=== PATIENT | female | born 1995 | race Caucasian/White ===

== ENCOUNTER 2022-08-29 01:10 | Emergency (ER) | payer OTHER, MEDICAID, SELFPAY ==
[2022-08-29 01:16] VITALS: BP 142/72; PULSE 94; RESP 18; TEMP 37.1; O2SAT 94
--- NOTE | 2022-08-29 01:47 | ED_ITS ---
HPI - General Adult General Chief complaint: Abdominal Pain Stated complaint: collitus bleeding is intense and bleeding worsen Time Seen by Provider: 08/29/22 01:23 Source: patient Mode of arrival: Wheelchair History of Present Illness HPI narrative: Patient is a 26-year-old female who states that for the past 2 weeks has had issues with bloody diarrhea. Four days ago was seen at an outside facility where she states she would a CT scan and stool studies done. She told that she did not have any infections. Was told that she had colitis. Was told to take Imodium. Has a follow-up with her primary doctor in a couple days. She states that she has only occasionally been taking Imodium because her looked up on the Internet that Imodium in colitis can cause toxic megacolon so she is not been taking it. She also has been on a brat diet. She denies any urinary symptoms. No vomiting. She is here for a 2nd opinion. Related Data Allergies Allergy/AdvReac Type Severity Reaction Status Date / Time ceftriaxone [From Rocephin] Allergy Hives Verified 08/29/22 01:20 Review of Systems Constitutional Constitutional: Reports system reviewed and no additional complaints, except as documented Gastrointestinal Gastrointestinal: Reports system reviewed and no additional complaints, except as documented Genitourinary Genitourinary: Reports system reviewed and no additional complaints, except as documented Musculoskeletal Musculoskeletal: Reports system reviewed and no additional complaints, except as documented Integumentary/Breasts Skin/Breast: Reports system reviewed and no additional complaints, except as documented Patient History Social History Smoking Status: Never smoker Exam Initial Vital Signs Initial Vital Signs: Vital Signs Temperature 98.8 F 08/29/22 01:16 Pulse Rate 94 H 08/29/22 01:16 Respiratory Rate 18 08/29/22 01:16 Blood Pressure 142/72 H 08/29/22 01:16 Pulse Oximetry 94 08/29/22 01:16 Oxygen Delivery Method Room Air 08/29/22 01:16 HENMT Head: normal to inspection and normocephalic Resp Effort & Inspection: normal respiratory effort Cardio Rate: regular rate GI Inspection: normal to inspection and non-distended Skin General: no rashes or lesions noted Neuro General: patient alert, patient awake and moves all extremities Course Orders Ordered: ED Orders 08/29/22 02:05 Complete Blood Count AUTO DIFF Stat Comprehensive Metabolic Panel Stat Lipase Stat Discontinued Medications Sodium Chloride (Normal Saline 0.9%) 1,000 mls @ 1,000 mls/hr IV BOLUS ONE Stop: 08/29/22 02:46 Last Infusion: 08/29/22 03:14 Dose: 0 mls/hr Documented By: Admin: 08/29/22 02:13 Dose: 1,000 mls/hr Documented By: SHREE Vital Signs Vital signs: Vital Signs - 8 hr 08/29/22 01:16 Temperature 98.8 F Pulse Rate 94 H Respiratory Rate 18 Blood Pressure 142/72 H Pulse Oximetry 94 Oxygen Delivery Method Room Air Medical Decision Making Lab Data Lab results reviewed: Yes I reviewed the patient's lab results. 08/29/22 02:05 08/29/22 02:05 Labs: Lab Results 08/29/22 08/29/22 Range/Units 02:05 02:05 WBC 12.8 H (4.5-11.0) X10^3/uL RBC 4.76 (4.0-5.2) X10^6/uL Hgb 12.9 (12.0-16.0) g/dL Hct 38.5 (36-46) % MCV 80.9 (80-100) fL MCH 27.0 (26-34) PG MCHC 33.4 (30-36) % RDW 14.2 (11.6-14.8) % Plt Count 447 H (150-400) X10^3/uL Neut % (Auto) 52.5 (50-75) % Lymph % (Auto) 28.1 (25-40) % Ray % (Auto) 10.0 (3-14) % Eos % (Auto) 8.3 H (2-4) % Baso % (Auto) 1.1 (0-2) % Neut # (Auto) 6700 (5008-1837) /uL Lymph # (Auto) 3600 (9580-9132) /uL Ray # (Auto) 1300 H (0-900) /uL Eos # (Auto) 1100 H (0-450) /uL Baso # (Auto) 100 (0-100) /uL Sodium 138 (137-145) mmol/L Potassium 3.6 (3.4-5.1) mmol/L Chloride 102 (98-107) mmol/L Carbon Dioxide 30 (22-32) mmol/L BUN 3 L (7-17) mg/dL Creatinine 0.77 (0.52-1.04) mg/dL Estimated GFR > 60 (>60) mL/min BUN/Creatinine Ratio 3.9 L (6-22) Glucose 94 (70-100) mg/dL Calcium 9.9 (8.4-10.2) mg/dL Total Bilirubin 0.2 (0.2-1.3) mg/dL AST 30 (14-36) IU/L ALT 31 (<35) IU/L Alkaline Phosphatase 72 (38-126) U/L Total Protein 7.7 (6.3-8.2) g/dL Albumin 4.0 (3.5-5.0) g/dL Globulin 3.7 (1.7-4.1) g/dL Albumin/Globulin Ratio 1.1 (1.0-2.8) Lipase 114 (23-300) U/L [facility] Narrative Medical decision making narrative: I attempted multiple times to obtain records from the outside facility however we have been unable to acquire them. Patient is nontoxic. Her labs here in the emergency department unremarkable. Despite the bleeding that she states she is having she is not anemic. Has a benign exam. She states she would a CT scan performed and also had stool studies. There is no indication for antibiotics. Informed her that she can continue to do the Imodium. Advised that she continue to keep her appointment with her primary doctor to discuss further evaluation potentially referral to see Gastroenterology. No indication for repeat imaging studies today. Discharge Plan Departure Patient Disposition: Home Clinical Impression: Diarrhea Instructions: Diarrhea (Alternative Therapy), Diarrhea Activity Restrictions/Additional Instructions: I do recommend that you continue to increase your fluid intake. You can take the Imodium as directed. Keep your scheduled medical appointments. Return to the emergency department for new symptoms. Stand Alone Forms: Patient Portal/API
[2022-08-29 02:10] VITALS: BMI 37.1
[2022-08-29] MEDS: SODIUM CHLORIDE 0.9% 1,000 ML 1000 ML IV (02:13)
[2022-08-29 02:19] LABS: Add Manual Diff / Slide Review NO; Basophils Absolute Auto 100 /uL (0-100); Basophils Percent Auto 1.1 % (0-2); Eosinophils Absolute Auto 1100 /uL (0-450); Eosinophils Percent Auto 8.3 % (2-4); Hematocrit 38.5 % (36-46); Hemoglobin 12.9 g/dL (12.0-16.0); Lymphocytes Absolute Auto 3600 /uL (1100-4500); Lymphocytes Percent Auto 28.1 % (25-40); Mean Corpuscular HGB Conc 33.4 % (30-36); Mean Corpuscular Volume 80.9 fL (80-100); Monocytes Absolute Auto 1300 /uL (0-900); Neutrophils Absolute Auto 6700 /uL (1500-7000); Neutrophils Percent Auto 52.5 % (50-75); Platelet Count 447 X10^3/uL (150-400); Red Blood Cell Count 4.76 X10^6/uL (4.0-5.2); Red Cell Distribution Width 14.2 % (11.6-14.8); White Blood Cell Count 12.8 X10^3/uL (4.5-11.0)
[2022-08-29 02:23] LABS: Alanine Aminotransferase 31 IU/L (<35); Albumin Globulin Ratio 1.1 (1.0-2.8); Alkaline Phosphatase 72 U/L (38-126); Aspartate Aminotransferase 30 IU/L (14-36); BUN Creatinine Ratio 3.9 (6-22); Bilirubin Total 0.2 mg/dL (0.2-1.3); Blood Urea Nitrogen 3 mg/dL (7-17); Calcium 9.9 mg/dL (8.4-10.2); Carbon Dioxide 30 mmol/L (22-32); Chloride 102 mmol/L (98-107); Estimated Glomerular Filt Rate > 60 mL/min (>60); Globulin 3.7 g/dL (1.7-4.1); Glucose 94 mg/dL (70-100); HEMOLYSIS < 15 (0-50); Lipase 114 U/L (23-300); Potassium 3.6 mmol/L (3.4-5.1); Sodium 138 mmol/L (137-145); Total Protein 7.7 g/dL (6.3-8.2)
[2022-08-29 04:12] VITALS: BP 121/59; PULSE 84; RESP 18; O2SAT 96
== END 2022-08-29 04:12 | disposition home or self-care (01) ==
PROVIDERS: Emergency Provider Emergency Medicine
DX: R19.7 Diarrhea, unspecified (principal)
CPT/HCPCS: 36415; 80053; 83690; 85025; 96360; 99284